=== PATIENT | female | born 1990 | race African-American/Black ===

== ENCOUNTER 2020-05-08 08:00 | Inpatient (IN) | payer OTHER ==
[2020-05-08] MEDS ORDERED: AMPICILLIN SODIUM 2 GM VIAL ONE (08:37)
[2020-05-08] MEDS ORDERED: SODIUM CHLORIDE 100 ML IVPB ONE (08:37)
[2020-05-08 09:12] LABS: BASO % 0.6 % (0-2.0); EOS % 0.5 % (0-4.5); HEMATOCRIT 33.3 % (32.4-45.2); HEMOGLOBIN 11.2 GM/dL (10.7-15.3); LYMPH % 15.9 % (8-40); MCH 28.8 pg (25.7-33.7); MCHC 33.5 g/dl (32.0-36.0); MEAN CELL VOLUME 85.8 fl (80-96); MEAN PLT VOLUME 7.9 fl (7.5-11.1); MONO % 6.9 % (3.8-10.2); NEUT % 76.1 % (42.8-82.8); PLATELET COUNT 211 K/MM3 (134-434); RBC 3.88 M/mm3 (3.60-5.2); RDW 14.9 % (11.6-15.6); WHITE BLOOD COUNT 8.2 K/mm3 (4.0-10.0)
[2020-05-08 09:16] VITALS: BMI 34.8
[2020-05-08] MEDS ORDERED: AMPICILLIN - 2 GM in SODIUM CHLORIDE 100 ML IVPB ONE (09:23)
[2020-05-08 09:25] LABS: INR 1.01 (0.83-1.09); PROTHROMBIN TIME (PATIENT) 11.9 SEC (9.7-13.0)
[2020-05-08 09:27] LABS: ACTIVATED PTT 29.9 SECONDS (25.2-36.5)
[2020-05-08] MEDS ORDERED: ELECTROLYTE-148 SOLN 1,000 ML IV SCH (09:30)
[2020-05-08 09:32] LABS: BLOOD UREA NITROGEN 5.1 mg/dL (7-18); CALCIUM 8.7 mg/dL (8.5-10.1); CREATININE 0.6 mg/dL (0.55-1.3); POTASSIUM 3.1 mmol/L (3.5-5.1)
--- NOTE | 2020-05-08 09:38 | HP ---
Past Medical History - Admission Chief Complaint: active labor History Source: Patient Limitations to Obtaining History: No Limitations - Past Medical History ...: 2 ...Para: 0 ...Spon : 1 ...LMP: 08/08/19 ... Weeks Gestation by Dates: 39.1 ...EDC by Dates: 05/14/20 ...EDC by Sono: 05/14/20 - Past Surgical History Past Surgical History: Yes: None Hx Myomectomy: No Hx Transabdominal Cerclage: No - Smoking History Smoking history: Never smoked Have you smoked in the past 12 months: No - Alcohol/Substance Use History of Substance Use: reports: None - Social History Usual Living Arrangement: Yes: With Spouse ADL: Independent History of Recent Travel: No Home Medications - Allergies Allergies/Adverse Reactions: Allergies Allergy/AdvReac Type Severity Reaction Status Date / Time tomato Allergy Severe Swelling Verified 05/08/20 09:23 - Home Medications Home Medications: Ambulatory Orders Pnv No.95/Ferrous Fum/Folic AC [ Formula] 1 each PO DAILY 04/14/20 Amoxicillin/Potassium Clav [Augmentin 875-125 Tablet] 1 each PO BID 7 Days #14 tablet 04/17/20 Physical Exam - Maternity Vital Signs: Vital Signs Temperature 98.2 F 05/08/20 09:10 Pulse Rate 82 05/08/20 09:10 Respiratory Rate 18 05/08/20 09:10 Blood Pressure 125/81 05/08/20 09:10 O2 Sat by Pulse Oximetry (%) Constitutional: Yes: Well Nourished Eyes: Yes: WNL HENT: Yes: WNL Neck: Yes: WNL Cardiovascular: Yes: WNL Lungs: Normal air movement - Abdominal Exam/OB Presentation: Vertex Contractions: Yes Regularity: Regular Intensity: Moderate Monitor Mode: External Category: I Accelerations: Uniform Decelerations: None - Vaginal Exam/OB Dilatation (cm): 5cm Amniotic Membrane Status: Intact Presentation: Vertex/Position Station: -1 - Physical Exam Edema: No Problem List - Problems (1) GBS (group B Streptococcus carrier), +RV culture, currently Code(s): O99.820 - STREPTOCOCCUS B CARRIER STATE COMPLICATING (2) Active labor at term Code(s): [id number] - Assessment/Plan active labor GBS+/ for treatment FABIO
[2020-05-08] MEDS ORDERED: PROMETHAZINE HCL 25 MG/1 ML VIAL ONE (11:53)
[2020-05-08] MEDS ORDERED: BUTORPHANOL TARTRATE 2 MG/ML VIAL ONE (11:53)
[2020-05-08] MEDS ORDERED: AMPICILLIN SODIUM 1 GM VIAL ONE (11:54)
[2020-05-08] MEDS ORDERED: OXYTOCIN 30 UNITS in 0.9% NS 30 UNIT/500 ML INFUS.BAG IVPB ONE (11:54)
[2020-05-08] MEDS ORDERED: OXYTOCIN 20 UNITS in 0.9% NS 20 UNIT/1,000 ML INFUS.BAG IV ONE (11:54)
[2020-05-08] MEDS ORDERED: PROMETHAZINE HCL 25 MG/1 ML VIAL IVPB ONE (12:11)
[2020-05-08] MEDS ORDERED: BUTORPHANOL TARTRATE 1 MG/ML VIAL IVPB ONE (12:11)
[2020-05-08] MEDS ORDERED: OXYTOCIN 30 UNITS in 0.9% NS 30 UNIT/500 ML INFUS.BAG IVPB SCH (12:15)
--- NOTE | 2020-05-08 12:16 | PN ---
Progress Note (short form) - Note Progress Note: Attending note: patient requested pain meds; was ambulating cervix= 6 cm / 0 station/ 95 $ effaced AROM= clear baseline= 125/ moderate variability/ acc/ no decelerations/ contractions q 3-4 min I/P: will start Pitocin/ pain meds Problem List - Problems (1) GBS (group B Streptococcus carrier), +RV culture, currently Code(s): O99.820 - STREPTOCOCCUS B CARRIER STATE COMPLICATING (2) Active labor at term Code(s): [id number] -
[2020-05-08] MEDS: AMPICILLIN - 1 GM in SODIUM CHLORIDE 100 ML IVPB SCH ×2 (12:30→21:29)
[2020-05-08] MEDS ORDERED: FENTANYL/BUPIVACAINE/NS/PF - PCEA - 50 ML DISP.SYRIN EP ONE (13:46)
[2020-05-08] MEDS ORDERED: PCA PUMP NR ONE (13:47)
[2020-05-08] MEDS ORDERED: FENTANYL/BUPIVACAINE/NS/PF - PCEA - 50 ML DISP.SYRIN EP SCH (14:30)
[2020-05-08] MEDS ORDERED: NALOXONE HCL 0.4 MG/ML VIAL IVPUSH PRN (14:41)
[2020-05-08] MEDS ORDERED: BENZOCAINE 20% 57 GM BOTTLE TP PRN (17:35)
[2020-05-08] MEDS ORDERED: BENZOCAINE 28 GM HEMORRHOIDAL OINTMENT TP PRN (17:35)
[2020-05-08] MEDS ORDERED: BISACODYL 10 MG SUPP.RECT RC PRN (17:35)
[2020-05-08] MEDS ORDERED: WITCH HAZEL 50% (TUCKS) 40 PAD/JAR PAD TP PRN (17:35)
[2020-05-08] MEDS ORDERED: METHYLERGONOVINE MALEATE 0.2 MG/1 ML AMP IM PRN (17:35)
--- NOTE | 2020-05-08 17:40 | PN ---
Delivery - Delivery Vaginal Delivery: No Problems Type of Anesthesia: Epidural Episiotomy/Laceration: Right Mediolateral ( of live baby boy; OA position over modified RML episiotomy; placenta spontaneously delivered and complete; cervix and uterus explored and negatie; episiotomy repaired in layers under local with 2-0 chromic) EBL (cc): 400 Delivery, Single - Anton Feeding Plan Initial Plan: Exclusive throughout hospitalization
[2020-05-08] MEDS ORDERED: OXYTOCIN 20 UNITS in 0.9% NS 20 UNIT/1,000 ML INFUS.BAG IV SCH (17:45)
[2020-05-08] MEDS: IBUPROFEN 600 MG TABLET (FP) PO PRN (21:47)
[2020-05-08] MEDS: ACETAMINOPHEN 325 MG TABLET (FP) PO PRN (21:48)
[2020-05-09] MEDS: IBUPROFEN 600 MG TABLET (FP) PO PRN ×3 (06:11→22:44)
[2020-05-09] MEDS: ACETAMINOPHEN 325 MG TABLET (FP) PO PRN ×3 (06:11→22:45)
[2020-05-09 08:14] LABS: BASO % 0.1 % (0-2.0); EOS % 0.4 % (0-4.5); HEMATOCRIT 27.2 % (32.4-45.2); MCH 28.8 pg (25.7-33.7); MCHC 33.2 g/dl (32.0-36.0); MEAN CELL VOLUME 86.9 fl (80-96); MEAN PLT VOLUME 8.4 fl (7.5-11.1); MONO % 10.1 % (3.8-10.2); NEUT % 74.4 % (42.8-82.8); PLATELET COUNT 187 K/MM3 (134-434); RBC 3.13 M/mm3 (3.60-5.2); RDW 14.8 % (11.6-15.6); WHITE BLOOD COUNT 11.5 K/mm3 (4.0-10.0)
--- NOTE | 2020-05-09 17:59 | PN ---
Progress Note (short form) - Note Progress Note: PPD# !: patient comfortable; no complains; breast feeding VSS abdomen soft; non tender, firm lochia minimal, states yesterday was heavy I/P: anemia discharge in am on and iron Problem List - Problems (1) GBS (group B Streptococcus carrier), +RV culture, currently Code(s): O99.820 - STREPTOCOCCUS B CARRIER STATE COMPLICATING (2) Active labor at term Code(s): [id number] -
--- NOTE | 2020-05-09 18:04 | DS ---
Physical Exam-[facility] [employer] Vital Signs: Vital Signs Temperature 98.8 F 05/09/20 14:00 Pulse Rate 80 05/09/20 14:00 Respiratory Rate 20 05/09/20 14:00 Blood Pressure 114/78 05/09/20 14:00 O2 Sat by Pulse Oximetry (%) 97 05/09/20 06:00 Constitutional: Yes: Well Nourished Eyes: Yes: WNL HENT: Yes: WNL Neck: Yes: WNL Cardiovascular: Yes: WNL Respiratory: Yes: WNL Uterus: Yes: Firm ....Post : Yes: Uterus non-tender Edema: No Labs: CBC, BMP 05/09/20 07:00 05/08/20 08:50 Delivery - Delivery Vaginal Delivery: No Problems Type of Anesthesia: Epidural Episiotomy/Laceration: Right Mediolateral ( of live baby boy; OA position over modified RML episiotomy; placenta spontaneously delivered and complete; cervix and uterus explored and negatie; episiotomy repaired in layers under local with 2-0 chromic) EBL (cc): 400 Delivery, Single - Stages of Labor Date 1st Stage Initiatied: 05/08/20 Time 1st Stage Initiated: 07:00 Date 2nd Stage Initiated: 05/08/20 Time 2nd Stage Initiated: 16:15 Date of Delivery: 05/08/20 Time of Delivery: 16:52 Time Placenta Delivered: 17:00 - Condition of End User Support Specialist/Electrician Apprentice Present: No Infant Gender: Male Weight: 3.289 kg Position: Right, OA Total Hours ROM (Hrs/Mins): 6H - 1 Minute Total Score: 9 5 Minutes Total Score: 9 - Feeding Plan Initial Plan: Exclusive throughout hospitalization Remarks - Remarks Remarks: s/p ; + GBS treated in labor; anemia Discharge Summary Problems reviewed: Yes Reason For Visit: INDUCTION OF LABOR Current Active Problems Active labor at term (Acute) GBS (group B Streptococcus carrier), +RV culture, currently (Acute) Procedures: Principal: Hospital Course: anemia Condition: Good - Instructions Diet, Activity, Other Instructions: regular diet Disposition: HOME - Home Medications Comprehensive Discharge Medication List: Ambulatory Orders Pnv No.95/Ferrous Fum/Folic AC [ Formula] 1 each PO DAILY 04/14/20 Amoxicillin/Potassium Clav [Augmentin 875-125 Tablet] 1 each PO BID 7 Days #14 tablet 04/17/20 Prescription Drug Monitoring Program (I-STOP) results: I-STOP reviewed and no issues identified
[2020-05-09] MEDS ORDERED: SENNOSIDES/DOCUSATE COMBO (SENNA PLUS) TABLET (UD) PO PRN (22:00)
[2020-05-10] MEDS: ACETAMINOPHEN 325 MG TABLET (FP) PO PRN (09:00)
[2020-05-10] MEDS: IBUPROFEN 600 MG TABLET (FP) PO PRN (09:01)
[2020-05-10 10:04] VITALS: BP 135/82; PULSE 75; TEMP 98
== END 2020-05-10 12:20 | disposition home or self-care (01) | DRG 807 ==
LOC: JLDR 08:00 → J3W 19:40
PROVIDERS: ADMIT Obstetrics & Gynecology; ATTEND Obstetrics & Gynecology
PROC: 10E0XZZ Delivery of Products of Conception, External Approach (ICD-10-PCS; principal; 2020-05-08)
PROC: 0W8NXZZ Division of Female Perineum, External Approach (ICD-10-PCS; 2020-05-08)
DX: O99.824 Streptococcus B carrier state complicating childbirth (principal); Z37.0 Single live birth; Z3A.39 39 weeks gestation of pregnancy; O90.81 Anemia of the puerperium; D64.9 Anemia, unspecified; Z91.018 Allergy to other foods
CPT/HCPCS: 36415; 59409; 80048; 85025; 85610; 85730; 86780; 86850; 86900; 86901; 87389; U0003